=== PATIENT | female | born 1930 | race Caucasian/White ===

== ENCOUNTER 2017-10-23 10:34 | Emergency (ER) | payer MEDICARE, OTHER ==
[2017-10-23 11:28] VITALS: RESP 18; TEMP 97.8; O2SAT 99
[2017-10-23 11:43] LABS: BASOPHILS % (AUTO) 1 % (0-3); EOSINOPHILS % (AUTO) 0 % (0-9); HEMATOCRIT 28 % (35-47); MEAN CORPUSCULAR HGB CONC 33.6 gm/dl (32.0-36.0); MEAN CORPUSCULAR VOLUME 94 fL (81-99); NEUTROPHILS % (AUTO) 82.1 % (37-80)
[2017-10-23 11:53] LABS: ALBUMIN 2.7 gm/dl (3.4-5.0); BILIRUBIN,DIRECT 0.1 mg/dl (0.0-0.2); CALCIUM 9.1 mg/dl (8.5-10.1); POTASSIUM 4.1 mMol/L (3.5-5.1)
[2017-10-23 13:11] VITALS: BP 115/74; PULSE 77
== END 2017-10-23 12:35 | disposition home or self-care (01) | DRG 607 ==
LOC: ED 10:34
DX: D04.39 Carcinoma in situ of skin of other parts of face (principal); D50.0 Iron deficiency anemia secondary to blood loss (chronic); D63.8 Anemia in other chronic diseases classified elsewhere; R58 Hemorrhage, not elsewhere classified
CPT/HCPCS: 36415; 80048; 80076; 85025; 99283

== ENCOUNTER 2017-11-01 22:18 | Emergency (ER) | payer MEDICARE, OTHER ==
[2017-11-01 22:30] VITALS: BP 132/62; PULSE 116; RESP 16; TEMP 97.6; O2SAT 100
== END 2017-11-01 22:46 | disposition home or self-care (01) | DRG 607 ==
LOC: ED 22:18
DX: D04.39 Carcinoma in situ of skin of other parts of face (principal)
CPT/HCPCS: 99282